=== PATIENT | male | born 1990 | race Caucasian/White ===

== ENCOUNTER 2017-03-19 17:40 | Emergency (ER) | payer OTHER ==
[~2017-03-19] VITALS: Ht 188 cm; Wt 95.8 kg
[2017-03-19 17:57] VITALS: TEMP 36.7; Ht 188 cm; Wt 95.8 kg
[2017-03-19] MEDS ORDERED: LIDOCAINE/EPINEPHRINE 1% 20 ML VIAL INFIL ONE (18:15)
--- NOTE | 2017-03-19 19:12 | EMERGENCY ROOM VISIT NOTE ---
ED Visit Note First contact with patient: 18:05 CHIEF COMPLAINT: Hand laceration HISTORY OF PRESENT ILLNESS: This 26-year-old male patient presents to the emergency department ambulatory after cutting the left hand on a knife while washing dishes. The bleeding has not stopped. Denies weakness or numbness of the hand or fingers. The patient rates the pain as sharp and 6/10. The patient denies any other injuries. The patient's Tetanus shot is up to date. REVIEW OF SYSTEMS: A 6 system review of systems was completed with positives and pertinent negatives listed in the HPI. ALLERGIES: No known drug allergies MEDICATIONS: No chronic medications PMH: No significant past medical history. SOCIAL HISTORY: The patient lives locally with his . 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 PHYSICAL EXAM: Vital Signs: Reviewed Nurse's notes, vital signs stable. GENERAL : This is a 26-year-old male, in no acute distress, well-developed, well- nourished. SKIN: There is a 2 cm long laceration on the dorsal aspect of the left hand., Just proximal to the index finger The edges gape apart with traction. There is no foreign material in the wound and it looks clean. There is minimal bleeding. No deep structures such as tendons, bones, or significant blood vessels are seen in the base of the wound. Normal strength and movement of the fingers and wrist. Capillary refill less than 2 seconds. Normal sensation to light and sharp touch. EMERGENCY DEPARTMENT COURSE: I examined the patient. Verbal consent was obtained to perform the procedure. Using sterile technique the wound was cleansed with Betadine. The area was sterilely draped. 3 ml of 1% buffered lidocaine with epinephrine was used to anesthetize the laceration on the hand. Once the patient was anesthetized, the wound was copiously irrigated under pressure with sterile saline. The wound was explored and was as described above. The laceration was repaired using 4 simple interrupted 5-0 nylon sutures with the wound edges being well approximated. The patient tolerated the procedure well. Hemostasis was achieved. The area was cleaned with sterile saline and dressed with bacitracin ointment and bandage. Suture care instructions were discussed with the patient. He verbalized understanding. The patient was discharged home in good condition. Blood Pressure Screening: Patient was found to have a slightly elevated blood pressure due to circumstances. I do not believe that the patient requires hypertension monitoring. Medication reconciliation: I attest that I have personally reviewed the patient 's current medication list. DIAGNOSIS: Hand laceration Current/Historical Medications No Active Prescriptions or Reported Meds Allergies Coded Allergies: No Known Allergies (Unverified , 03/19/17) Vital Signs Date Time Temp Pulse Resp B/P (MAP) Pulse Ox O2 Delivery O2 Flow Rate FiO2 03/19/17 19:17 78 150/73 97 03/19/17 17:57 36.7 74 16 131/64 96 Room Air Departure Information Impression Primary Impression: Hand laceration Dispostion Home / Self-Care Condition GOOD Prescriptions No Active Prescriptions or Reported Meds Referrals No Doctor, Assigned (PCP) Patient Instructions My [facility] Additional Instructions You have received 4 sutures on your hand. These sutures are NOT dissolvable and WILL need to be removed by a health care provider in 8-10 days. You can return to the Emergency Department or contact your Primary Care Provider to have the sutures removed. Proper wound care is essential for adequate wound healing and infection prevention. You can shower and clean the wound with soap and water. Do not scour over the wound, pat dry with a towel. Do not submerse the wound (i.e. bathe or dish wash) until the sutures have been removed. You can use an antibiotic ointment with a dressing over the wound for the next 3-4 days. After this time you may leave the wound dry and open to the air. If crust develops over the wound you can use a Q-tip to apply a 1:1 peroxide:water solution to clean the wound. Look for signs of infection of the wound including: increased pain, swelling, foul discharge, streaking, or increased temperature. If any of these are noticed you should return to the Emergency Department for further assessment and treatment. As with any laceration you may have received nerve damage to the surrounding tissues. This damage may or may not be permanent. You should keep the area covered with sunscreen for the first 6 months to 1 year when at risk for exposure to help minimize scarring. You can also use scar reducing creams or Vitamin E oil to help minimize scarring. For pain control, you can use the following [id number] medicines (if >12 yo): - Regular strength (325mg/tab) Tylenol (acetaminophen) 2 tabs every 4-6 hours as needed. Do not exceed 12 tablets in a 24 hour period. Avoid taking more than 4 grams (4000 mg) of Tylenol per day. This includes any other sources of acetaminophen you may take on a regular basis. - Regular strength (200 mg/tab) Advil (ibuprofen) 1-2 tabs every 4-6 hours as needed. Do not exceed a dose of 3200 mg per day. Return to the emergency department if your symptoms worsen despite treatment course outlined above. Problem Qualifiers Primary Impression: Hand laceration Encounter type: initial encounter Foreign body presence: without foreign body Laterality: left Qualified Codes: S61.412A - Laceration without foreign body of left hand, initial encounter
[2017-03-19 19:17] VITALS: BP 150/73; PULSE 78; O2SAT 97
== END 2017-03-19 19:18 | disposition home or self-care (01) ==
LOC: C.EDB 17:41 → C.EDD 19:18
DX: S61.412A Laceration without foreign body of left hand, initial encounter (principal); W26.0XXA Contact with knife, initial encounter; Y93.G1 Activity, food preparation and clean up